=== PATIENT | female | born 2000 | race Caucasian/White ===

== ENCOUNTER → 2022-09-22 | Outpatient (CLI) | payer OTHER, SELFPAY ==
[2022-09-22 16:45] LABS: BUP Internal Control LINE = VALID (VALID); Buprenorphine Drug Screen Negative (<10 ng/mL)
[2022-09-23 09:39] LABS: Amphetamine Urine VISTA NEGATIVE (<1000 ng/mL); Barbiturate Urine VISTA NEGATIVE (< 200 ng/mL); Benzodiazepine Urine VISTA NEGATIVE (< 200 ng/mL); Cocaine Urine VISTA NEGATIVE (< 300 ng/mL); Ecstacy Urine VISTA NEGATIVE (< 500 ng/mL); Methadone Urine VISTA NEGATIVE (< 300 ng/mL); PCP Urine VISTA NEGATIVE (< 25 ng/mL); THC Urine VISTA NEGATIVE (< 50 ng/mL); Vista UDS pH Range 5
== END | disposition home or self-care (01) ==
PROVIDERS: PCP Physician Assistant; Referring Provider Internal Medicine Pulmonary Disease; Visit Provider Internal Medicine Pulmonary Disease
DX: Z04.89 Encounter for examination and observation for other specified reasons (principal)
CPT/HCPCS: 80307

== ENCOUNTER 2024-03-06 23:51 | Emergency (ER) | payer OTHER, SELFPAY ==
[2024-03-06 23:54] VITALS: BP 108/90; PULSE 82; RESP 16; TEMP 36.8; O2SAT 100; BMI 21.5
[2024-03-07 00:34] LABS: Absolute Lymphocyte Count 2.56 X10^3/uL (0.83-4.51); Absolute Neutrophil Count 5.3 X10^3/uL (2.0-7.7); Basophil# 0.07 X10^3/uL; Basophil% 0.8 % (0-1); Eosinophil# 0.09 X10^3/uL; Hematocrit 40.4 % (37-47); Lymphocyte # 2.56 X10^3/ul (0.83-4.51); Lymphocyte % 29.5 % (19-41); Mean Corp Hgb Conc 32.2 g/dL (32-36); Mean Corpuscular Hgb 28.4 pg (27.0-32.0); Mean Corpuscular Volume 88.4 fL (81-99); Mean Platelet Vol. 9.8 fl (6.2-12.0); Monocyte# 0.62 X10^3/uL; Monocyte% 7.2 % (0-10); NRBC Flagged by Analyzer 0 % (0-5); Neutrophil # 5.31 X10^3/uL (2.7-7.7); Neutrophil % 61.3 % (47-70); Platelet Count 315 K/mm3 (150-450); RBC Distribution Width SD 42.3 fl (35.1-43.9); Red Blood Count 4.57 M/mm3 (4.2-5.4); White Blood Count 8.7 K/mm3 (4.4-11.0)
--- NOTE | 2024-03-07 00:35 | CT_ITS ---
EXAM: CT HEAD WITHOUT INTRAVENOUS CONTRAST CLINICAL INDICATION: SYNCOPE TECHNIQUE: Multiple axial images were obtained of the head without intravenous contrast. This CT exam was performed using one or more of the following dose reduction techniques: automated exposure control, adjustment of the mA and/or kV according to patient size, and/or use of iterative reconstruction technique. RADIATION DOSE: CTDIvol = 44.99 mGy, DLP = 745.49 mGy-cm COMPARISON: No relevant prior studies available. FINDINGS: BRAIN AND EXTRA-AXIAL SPACES: Unremarkable. No intra- or extra-axial hemorrhage. No evidence of acute infarct. No intracranial mass or mass effect. There is preservation of the taveras/white matter interface. Posterior fossa structures are unremarkable. Ventricles are appropriate for age. No hydrocephalus. Basal cisterns are patent. BONES/JOINTS: Unremarkable. No discrete lytic or blastic abnormalities. SINUSES: Unremarkable as visualized. Clear. MASTOID AIR CELLS: Unremarkable. Clear. ORBITS: Visualized globes, extraocular muscles, optic nerves and retrobulbar fat appear unremarkable. CT/Brain/Head without Contrast IMPRESSION: Negative head/brain CT without intravenous contrast. Electronically Signed: Remberto Louis MD at 1:06 EDT ,
[2024-03-07 00:40] LABS: Internal QC Validated? YES +Cl - CLEAR BKGD; Pregnancy, Serum, hCG Quali. NEGATIVE Negative
[2024-03-07 00:44] LABS: Anion Gap 5 (5-15); BUN 14 mg/dL (7-18); BUN/Creat Ratio 17.5 RATIO (10-20); Calcium,Total 8.9 mg/dL (8.5-10.1); Chloride 109 mmol/L (98-107); EST Glomerular Filtration Rate 92 mL/min (>60); Est Glom Filt Rate - Afr Amer 112 mL/min (>60); Estimated Creatinine Clearance 96.73 ml/min; Glucose 100 mg/dL (74-106); Magnesium 2.2 mg/dL (1.6-2.6); Potassium 3.9 mmol/L (3.5-5.1); Sodium Level 142 mmol/L (136-145)
[2024-03-07 00:47] LABS: Lactic Acid 1.4 mmol/L (0.4-1.9)
--- NOTE | 2024-03-07 01:43 | EDS_ITS ---
HPI History of Present Illness Chief Complaint: Seizure Informant: patient and spouse/S.O. Narrative Narrative: Patient is a 23-year-old female with past medical history of narcolepsy and vasovagal syncope. Reportedly she was in bed with her significant other this evening when he witnessed her eyes rolled in the back of her head and have mild shaking/twitching. There was concern for potential seizure and therefore the patient comes in for evaluation. She states that she does not have a known history of seizure activity. She denies any illicit drug use. She states she is only taken her prescribed medications as directed. She also reports that she does not remember her eyes rolled in the back of her head but she does remember knowing who she was and where she was at when she awoke from the questionable seizure activity. [facility] Medical History (Updated 03/07/24 @ 04:[address] Roque Buenrostro DO) Vasovagal syncope Narcolepsy Home Medications ?Medication ?Instructions ?Recorded ?Last Taken ?Type dextroamphetamine sulfate 15 mg 30 mg PO BID PRN PRN insomnia 03/06/24 Unknown History tablet pitolisant 17.8 mg tablet (Wakix) 35.6 mg PO DAILY 03/06/24 Unknown History Allergy/AdvReac Type Severity Reaction Status Date / Time No Known Allergies Allergy Verified 03/06/24 23:52 Family History no significant family his Surgical History (Updated 03/07/24 @ 00:00 by Kady Abarca) Hx of tonsillectomy Social History Smoking Status: Never smoker ROS [facility] ED Constitutional Constitutional ED: Denies chills or fever(s) Eyes Eyes: Denies blurry vision or change in vision ENT ENT ED: Denies sore throat Cardiovascular Cardiovascular: Reports palpitations; Denies chest pain or racing heartbeat Respiratory/Chest Respiratory/Chest: Denies cough or dyspnea Gastrointestinal Gastrointestinal: Denies abdominal pain, diarrhea, nausea or vomiting Genitourinary Genitourinary ED: Denies dysuria Musculoskeletal Musculoskeletal: Denies myalgias Integumentary Denies rash Neurologic Neurologic: Reports other Details: Questionable seizure ; Denies headache(s) Hematologic/Lymphatic Hematologic/Lymphatic: Denies easy bleeding or easy bruising EXAM Physical Exam Const Vital Signs: 03/06/24 23:54 03/07/24 01:48 Temperature 98.2 F 98.9 F Temperature Source Oral Pulse Rate 82 79 Respiratory Rate 16 18 Blood Pressure 108/90 H 100/70 Blood Pressure Mean 96 80 Pulse Ox 100 99 Oxygen Delivery Method Room Air Positive well nourished and well developed General Appearance ED: well developed; Negative for pallor HEENT Reports moist mucous membranes HEENT Narrative: No tongue or cheek biting No signs of infection noted in the posterior pharynx No tongue or lip swelling no oral lesions no airway edema or compromise Eyes PERRL and EOMs intact bilaterally General Eye ED: Negative for pale conjunctiva or scleral icterus Neck supple Resp normal respiratory effort and clear to auscultation bilaterally Cardio regular rate and regular rhythm Rate: other Other Details: Heart is regular rate and rhythm without murmurs rubs or gallop Radial and carotid pulses are equal and symmetric GI normal to inspection, nondistended, normoactive bowel sounds, non-tender, non- distended and no masses Auscultation: normoactive bowel sounds Palpation: soft Extremity normal to inspection Neuro oriented x3, CN's II-XII intact bilaterally and no sensory deficits noted Neuro Narrative: GCS of 15 Cranial nerves II through XII are grossly intact without focal neurologic deficit No pronator drift no dysmetria no truncal ataxia NIH stroke scale score of 0 Sensorium / Orientation: alert Motor Exam: strength 5/5 throughout Psych mental status grossly normal Skin no rashes or lesions noted and no wounds General Skin Exam: Negative for jaundice or pallor MDM MDM MDM Narrative Medical decision making narrative: Patient arrived to ER with stable vitals and normal neurologic exam. Patient is significantly reported an event where her eyes rolled in the back of her head and there was slight twitching activity. Differential diagnosis is for seizure versus syncope. There is also concern for potentially complication or acute kidney injury or electrolyte abnormality. There is also concern for potential brain bleed or mass. Therefore basic labs are obtained with a noncontrast CT scan. CT scan revealed no acute intracranial pathology. Labs revealed no clinically significant finding. Patient was kept on the monitor and her vitals and heart rate and rhythm remain normal and her neurologic status was normal throughout the entire ER stay. Therefore with overall negative workup and no return of symptoms I do not feel there is need for further evaluation. Patient's history and exam indicate this was most likely a syncopal event not seizure. Therefore she is otherwise safe for discharge and can follow-up on an outpatient basis History & Record Review Discussion w/independent historian: Patient and Significant other Lab Data Attestation: I reviewed the patient's lab results. Labs: Laboratory Results - last 24 hr 03/07/24 00:01 WBC 8.7 RBC 4.57 Hgb 13.0 Hct 40.4 MCV 88.4 MCH 28.4 MCHC 32.2 RDW Std Deviation 42.3 RDW Coeff of Armando 13.0 Plt Count 315 MPV 9.8 Immature Gran % (Auto) 0.200 Neut % (Auto) 61.3 Lymph % (Auto) 29.5 Rains % (Auto) 7.2 Eos % (Auto) 1.0 Baso % (Auto) 0.8 Absolute Neuts (auto) 5.3 Absolute Lymphs (auto) 2.56 Nucleated RBC % 0 Sodium 142 Potassium 3.9 Chloride 109 H Carbon Dioxide 28.0 Anion Gap 5 BUN 14 Creatinine 0.80 Estim Creat Clear Calc 96.73 Est GFR (MDRD) Af Amer 112 Est GFR (MDRD) Non-Af 92 BUN/Creatinine Ratio 17.5 Glucose 100 Lactic Acid 1.4 Calcium 8.9 Magnesium 2.2 Serum , Qual NEGATIVE Radiography Diagnostic Testing: Clinical Impression(s) from Imaging Studies Brain CT 03/07/24 00:35 IMPRESSION: Negative head/brain CT without intravenous contrast. Electronically Signed: Remberto Louis MD at 1:06 EDT Reading Location ID and State: [address] [place] [address] Tel , Service support , Discharge Plan Triage Chief Complaint: Seizure ED Provider: Roque Buenrostro Dx/Rx/DC Orders Clinical Impression: Syncope, Narcolepsy Instructions: Causes of Syncope, Diagnosing Syncope Prescriptions: No Action dextroamphetamine sulfate 15 mg tablet 30 mg PO BID PRN PRN (Reason: insomnia) Wakix 17.8 mg tablet 35.6 mg PO DAILY Primary Care Provider: Yoel Hdez Referrals: Yoel Hdez PA [Primary Care Provider] - Print Language: [place] Disposition Disposition: Home, Self Care Discharge Date/Time: 03/07/24 01:49
[2024-03-07 01:48] VITALS: BP 100/70; PULSE 79; RESP 18; TEMP 37.2; O2SAT 99
== END 2024-03-07 01:49 | disposition home or self-care (01) ==
PROVIDERS: Emergency Provider Emergency Medicine; PCP Physician Assistant; Visit Provider Emergency Medicine
DX: R55 Syncope and collapse (principal); G47.419 Narcolepsy without cataplexy
CPT/HCPCS: 70450; 80048; 83605; 83735; 84703; 85025; 99283; A4216